=== PATIENT | female | born 2000 | race Caucasian/White ===

== ENCOUNTER → 2020-08-15 | Outpatient (REF) ==
--- NOTE | 2020-08-15 11:43 | REP ---
INDICATION: DDD. COMPARISON: 07/15/2017. TECHNIQUE: Two AP and lateral views lumbosacral spine. FINDINGS: There is no compression fracture or malalignment. There is normal lumbar lordosis. Posterior elements appear intact. No significant disc degeneration is seen. IMPRESSION: Negative lumbosacral spine series. <Electronically signed by Francisco Javier Nuñez > 08/15/20 [id number]
== END ==
LOC: M RAD 11:15
PROVIDERS: ATTEND Internal Medicine
DX: M54.5 Low back pain (principal)